=== PATIENT | male | born 1980 | race African-American/Black ===

== ENCOUNTER 2020-07-12 12:28 | Emergency (ER) | payer OTHER ==
[2020-07-12] MEDS ORDERED: Ketorolac 60 MG/2 ML SDV IM ONE (13:07)
[2020-07-12] MEDS ORDERED: Orphenadrine 60 MG/2 ML Inj IM ONE (13:07)
[2020-07-12] MEDS ORDERED: predniSONE 20 MG Tab PO ONE (13:07)
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
--- NOTE | 2020-07-12 14:14 | CR ---
HISTORY: Low back pain for 1 year. Increasing back pain over the last 2 days. COMPARISON: None. TECHNIQUE: Lumbar spine, 3 views. FINDINGS: Five lumbar type vertebral bodies are demonstrated on this examination. There is disc height loss and osteophytic spurring at L4-5, with 11 mm of anterolisthesis of L4 on L5. There is no acute fracture. Vertebral body heights are maintained. There is no soft tissue mass by plain film. There is no suspicious calcification. Arcuate lines in the sacrum are intact. IMPRESSION: 1. Degenerative disc disease, primarily at L4-5. 2. 11 mm of anterolisthesis of L4 on L5. 3. There is no acute fracture identified. Dictated by Adan Love MD @ Jul 12 2020 2:10PM Signed by Dr. Adan Love @ Jul 12 2020 2:12PM
== END 2020-07-12 14:52 | disposition home or self-care (01) ==
LOC: MW.ED 12:28
DX: M54.42 Lumbago with sciatica, left side (principal); Z72.0 Tobacco use; Z79.899 Other long term (current) drug therapy
CPT/HCPCS: 72100; 96372; 99283; A9270; J1885; J2360